=== PATIENT | female | born 1965 | race African-American/Black ===

== ENCOUNTER 2017-05-15 21:16 | Emergency (ER) | payer OTHER ==
[~2017-05-15] VITALS: Ht 170.2 cm; Wt 94.4 kg
[2017-05-15 23:23] VITALS: BP 138/90
== END 2017-05-15 23:23 | disposition home or self-care (01) ==
LOC: EME 21:16
DX: I10 Essential (primary) hypertension (principal)
CPT/HCPCS: 99281; 99284